=== PATIENT | male | born 1990 | race Caucasian/White ===

== ENCOUNTER 2016-06-25 20:02 | Emergency (ER) | payer BC, OTHER ==
[2016-06-25 21:46] VITALS: BP 137/83
[2016-06-25] MEDS ORDERED: Acyclovir CAP* 200 MG PO ONE (22:06)
--- NOTE | 2016-06-25 22:10 | UC ---
Skin Complaint HPI - HPI Summary HPI Summary: felt like he had a bruise on the side of his head earlier in the week then he developed a painful rash behind right ear and scalp - History of Current Complaint Chief Complaint: UCSkin Time Seen by Provider: 06/25/16 21:51 Stated Complaint: SKIN/SCALP COMPLAINT Hx Obtained From: Patient Onset/Duration: Sudden Onset, Lasting Days - 3 Timing: Constant Onset Severity: Mild Current Severity: Moderate Pain Intensity: 3 Pain Scale Used: 0-10 Numeric Location: Ear (Right) - behind Character: Pruritus, Pain Aggravating: Nothing Alleviating: Nothing Associated Signs & Symptoms: Positive: Negative - Allergy/Home Medications Allergies/Adverse Reactions: Allergies Allergy/AdvReac Type Severity Reaction Status Date / Time environmental Allergy Congestion Uncoded 06/25/16 21:39 Review of Systems Constitutional: Negative Skin: Negative Eyes: Negative ENT: Negative, Other - blistering red rash behind right ear and on scalp pain ful no drainage Respiratory: Negative Cardiovascular: Negative Gastrointestinal: Negative Genitourinary: Negative Motor: Negative Neurovascular: Negative Musculoskeletal: Negative Neurological: Negative Psychological: Negative All Other Systems Reviewed And Are Negative: Yes PMH/Surg Hx/FS Hx/Imm Hx Previously Healthy: No - Rhumitoid Arthritis Cardiovascular History Of: Denies: Cardiac Disorders Respiratory History Of: Reports: Asthma - A CHILD, OK NOW, Bronchitis Denies: COPD Psychological History Of: Denies: Anxiety - Surgical History Surgical History: Yes Surgery Procedure, Year, and Place: ruptured achilles - Family History Known Family History: Positive: Hypertension - Social History Occupation: Employed Full-time Lives: With Family Alcohol Use: Occasionally Alcohol Amount: [employer] [place] Substance Use Type: None Smoking Status (MU): Never Smoked Tobacco - Immunization History Most Recent Influenza Vaccination: none Most Recent Tetanus Shot: 07/26/15 Physical Exam Triage Information Reviewed: Yes Appearance: Well-Appearing, No Pain Distress, Well-Nourished Vital Signs: Initial Vital Signs Temp 98.0 F 06/25/16 21:32 Pulse 84 06/25/16 21:32 Resp 16 06/25/16 21:32 BP 137/83 06/25/16 21:32 Pulse Ox 99 06/25/16 21:32 Vital Signs Reviewed: Yes Eye Exam: Normal Eyes: Positive: Conjunctiva Clear ENT Exam: Normal ENT: Positive: Normal ENT inspection, Hearing grossly normal, Pharynx normal, TMs normal. Negative: Nasal congestion, Nasal drainage, Tonsillar swelling, Tonsillar exudate, Trismus, Muffled/hoarse voice Dental Exam: Normal Neck exam: Normal Neck: Positive: Supple, Nontender, No Lymphadenopathy Respiratory Exam: Normal Respiratory: Positive: Chest non-tender, No respiratory distress, No accessory muscle use Cardiovascular Exam: Normal Cardiovascular: Positive: RRR, No Murmur, Pulses Normal, Brisk Capillary Refill Musculoskeletal Exam: Normal Neurological Exam: Normal Neurological: Positive: Alert, Muscle Tone Normal Psychological Exam: Normal Psychological: Positive: Normal Response To Family Skin Exam: Normal Skin: Positive: rashes - as described Course/Dx - Course Course Of Treatment: swab for varicella, start acyclovir follow with pcp - Differential Diagnoses - Skin Complaint Differential Diagnoses: Impetigo, Poison Catherine, Varicella Zoster, Viral Exanthem - Diagnoses Provider Diagnoses: Varicella [place] right scalp and behind right ear Discharge - Discharge Plan Condition: Stable Disposition: HOME Prescriptions: Acyclovir TAB* [Zovirax TAB*] 800 mg PO SEE INSTRUCTIONS #100 tab Patient Education Materials: Ibuprofen (By mouth), Shingles (ED) Referrals: AALIYAH Majano [Primary Care Provider] - 5 Days
== END 2016-06-25 22:14 | disposition home or self-care (01) ==
LOC: UCCORT 20:02
DX: B02.9 Zoster without complications (principal)
CPT/HCPCS: 87529; 87798; 99212; A9270-GY; G0463

== ENCOUNTER 2017-06-04 14:31 | Emergency (ER) | payer BC ==
[2017-06-04 15:44] VITALS: BP 127/75
--- NOTE | 2017-06-04 16:02 | UC ---
Respiratory Complaint HPI - HPI Summary HPI Summary: Pt c/o non productive cough X 2 months. Pt sates that cough im[prved with warm weather and has worsened with return of snow and colder weather. Denies fever, chills, - History of Current Complaint Chief Complaint: UCRespiratory Stated Complaint: COUGH Time Seen by Provider: 06/04/17 15:42 Hx Obtained From: Patient Onset/Duration: Gradual Onset, Lasting Weeks, Still Present Timing: Intermittent Episodes Severity Initially: Mild Severity Currently: None Pain Intensity: 0 Character: Cough: Nonproductive Aggravating Factors: Exertion, Deep Breaths, Recumbent Position Alleviating Factors: Spontaneous Resolution Associated Signs And Symptoms: Positive: Negative - Risk Factors Pulmonary Embolism Risk Factors: Negative Cardiac Risk Factors: Negative Pseudomonas Risk Factors: Negative Tuberculosis Risk Factors: Negative - Allergies/Home Medications Allergies/Adverse Reactions: Allergies Allergy/AdvReac Type Severity Reaction Status Date / Time environmental Allergy Congestion Uncoded 06/04/17 15:44 PMH/Surg Hx/FS Hx/Imm Hx Previously Healthy: Yes - Surgical History Surgical History: None Surgery Procedure, Year, and Place: ruptured achilles - Family History Known Family History: Positive: Hypertension - Social History Occupation: Employed Full-time Lives: With Family Alcohol Use: Occasionally Alcohol Amount: [employer] [place] Substance Use Type: None Smoking Status (MU): Never Smoked Tobacco Have You Smoked in the Last Year: No - Immunization History Most Recent Influenza Vaccination: none Most Recent Tetanus Shot: 07/26/15 Review of Systems Constitutional: Negative Skin: Negative Eyes: Negative ENT: Negative Respiratory: Cough Cardiovascular: Negative Gastrointestinal: Negative Genitourinary: Negative Motor: Negative Neurovascular: Negative Musculoskeletal: Negative Neurological: Negative Psychological: Negative Is Patient Immunocompromised?: No All Other Systems Reviewed And Are Negative: Yes Physical Exam Triage Information Reviewed: Yes Appearance: Well-Appearing Vital Signs: Initial Vital Signs Temp 97.9 F 06/04/17 15:40 Pulse 69 06/04/17 15:40 Resp 17 06/04/17 15:40 BP 127/75 06/04/17 15:40 Pulse Ox 100 06/04/17 15:40 Vital Signs Reviewed: Yes Eye Exam: Normal ENT Exam: Normal Dental Exam: Normal Neck exam: Normal Respiratory Exam: Normal Cardiovascular Exam: Normal Musculoskeletal Exam: Normal Neurological Exam: Normal Psychological Exam: Normal Skin Exam: Normal UC Diagnostic Evaluation - Laboratory O2 Sat by Pulse Oximetry: 100 Respiratory Course/Dx - Differential Dx/Diagnosis Differential Diagnosis/HQI/PQRI: Bronchitis, Influenza Provider Diagnoses: post viral cough Discharge - Sign-Out/Discharge Documenting (check all that apply): Discharge - Discharge Plan Condition: Stable Disposition: HOME Prescriptions: Benzonatate CAP* [Tessalon 100 MG CAP*] 100 mg PO TID PRN #30 cap PRN Reason: Cough Fexofenadine/Pseudoephedrine [Demi-D 24 Hour Tablet] 1 each PO DAILY #14 tab predniSONE TAB* [Deltasone TAB*] 40 mg PO DAILY #8 tab Patient Education Materials: Reactive Airways Disease (ED) Referrals: Olivia Ruiz MD [Primary Care Provider] - If Needed - Billing Disposition and Condition Condition: STABLE Disposition: HOME
== END 2017-06-04 16:11 | disposition home or self-care (01) ==
LOC: UCCORT 14:31
DX: R05 Cough (principal)
CPT/HCPCS: 99212; G0463